=== PATIENT | female | born 1970 | race Hispanic/Latino ===

== ENCOUNTER 2023-05-15 13:12 | Day surgery (SDC) | payer BC | END 2023-05-15 17:48 | disposition home or self-care (01) | LOC: NM 13:12 | PROVIDERS: ATTEND Specialist | DX: C50.912 Malignant neoplasm of unspecified site of left female breast (principal) | CPT/HCPCS: 78195; A9541 ==

== ENCOUNTER 2023-06-30 12:36 | Outpatient (CLI) | payer BC ==
[2023-06-30 13:58] LABS: Anion Gap 16 mmol/L (10-20); BUN (Urea Nitrogen) 20 mg/dL (9.8-20.1); Calc. Creatinine Clearance 0 mL/min (70-130); Calcium 9.6 mg/dL (7.8-10.44); Carbon Dioxide 24 mmol/L (22-29); Chloride 102 mmol/L (98-107); Estimated GFR 105; Glucose 127 mg/dL (70-105); Potassium 4.3 mmol/L (3.5-5.1); Sodium 138 mmol/L (136-145)
[2023-06-30 14:00] LABS: #Basophils 0.1 10x3/uL (0.0-0.2); #Eosinphils 0.1 10x3/uL (0.0-0.5); #Monocytes 0.6 10x3/uL (0.0-1.1); #Neutrophils 10.2 10x3/uL (1.5-8.4); %Basophils 0.4 % (0.0-2.0); %Eosinophils 0.4 % (0.0-6.0); %Lymphocytes 20.7 % (18.0-47.0); %Monocytes 4.3 % (0.0-10.0); %Neutrophils 73.4 % (40.0-75.0); Hematocrit 37.9 % (34.9-44.5); Mean Corpuscular HGB CONC 34.3 g/dL (32.0-36.0); Mean Corpuscular Hemoglobin 32.1 pg (27.0-33.0); Mean Corpuscular Volume 93.6 fl (81.6-98.3); Mean Platelet Volume 11.7 fl (7.4-10.4); Platelet Count 278 10x3/uL (150-450); RBC Distribution Width 12.6 % (11.5-14.5); Red Blood Cell (RBC) Count 4.05 10x6/uL (3.90-5.03); White Blood Cell (WBC) Count 13.9 10x3/uL (3.5-10.5)
== END 2023-06-30 12:37 | disposition home or self-care (01) ==
LOC: LABBT 12:36
PROVIDERS: ATTEND Specialist
DX: Z01.812 Encounter for preprocedural laboratory examination (principal); C50.912 Malignant neoplasm of unspecified site of left female breast
CPT/HCPCS: 80048; 85025

== ENCOUNTER 2023-07-01 07:15 | Day surgery (SDC) | payer BC ==
[2023-06-30 11:47] VITALS: BMI 46.0
[2023-07-01] MEDS ORDERED: Lidocaine 1% MPF 2 ML VIAL ONE (08:25)
[2023-07-01] MEDS ORDERED: PROPOFOL 60 ML ONE (09:26)
[2023-07-01] MEDS ORDERED: fentaNYL 50 mcg/mL 1 mL Vial ONE (09:52)
[2023-07-01] MEDS ORDERED: Lidocaine 1% PF 5 ML VIAL ONE (09:56)
[2023-07-01] MEDS ORDERED: PROPOFOL 20 ML ONE (10:24)
== END 2023-07-01 11:32 | disposition home or self-care (01) ==
LOC: SDC 07:15 → UNDOADMIN 07:30 → SURG A 07:30 → SDC 11:32 → UNDODISIN 11:32
PROVIDERS: ATTEND Internal Medicine Gastroenterology
PROC: 0DB68ZX Excision of Stomach, Via Natural or Artificial Opening Endoscopic, Diagnostic (ICD-10-PCS; principal; 2023-07-01)
PROC: 0DBL8ZZ Excision of Transverse Colon, Via Natural or Artificial Opening Endoscopic (ICD-10-PCS; principal; 2023-07-01)
DX: D12.3 Benign neoplasm of transverse colon (principal); K31.7 Polyp of stomach and duodenum; K21.00 Gastro-esophageal reflux disease with esophagitis, without bleeding; K57.30 Diverticulosis of large intestine without perforation or abscess without bleeding; E11.9 Type 2 diabetes mellitus without complications; I10 Essential (primary) hypertension; C50.919 Malignant neoplasm of unspecified site of unspecified female breast; Z15.89 Genetic susceptibility to other disease; Z79.899 Other long term (current) drug therapy
CPT/HCPCS: J2704; J3010

== ENCOUNTER 2023-07-03 06:54 | Day surgery (SDC) | payer BC ==
[2023-06-30 13:30] VITALS: BMI 47.8
[2023-07-03] MEDS ORDERED: Ketorolac Tromethamine 30 MG (1 mL) VIAL ONE (08:18)
[2023-07-03] MEDS ORDERED: Acetaminophen 500 MG TAB ONE (08:19)
[2023-07-03] MEDS ORDERED: EPINEPHrine 1 MG/ML VIAL ONE (09:00)
[2023-07-03] MEDS ORDERED: Bupivacaine 0.25% HCL 30 ML VIAL ONE (09:00)
[2023-07-03] MEDS ORDERED: CEFAZOLIN 2 GM VIAL ONE (09:08)
[2023-07-03] MEDS ORDERED: Sodium Chloride 0.9% 100 ML ONE (09:08)
[2023-07-03] MEDS ORDERED: fentaNYL PF 100 MCG/2 ML SYRINGE ONE (09:09)
[2023-07-03] MEDS ORDERED: PROPOFOL 20 ML ONE (09:09)
[2023-07-03] MEDS ORDERED: Dexamethasone 4 mg/ml Vial ONE (09:10)
[2023-07-03] MEDS ORDERED: Lidocaine 1% PF 5 ML VIAL ONE (09:10)
[2023-07-03] MEDS ORDERED: Ondansetron PF 4 MG/2 ML Vial ONE (09:10)
[2023-07-03] MEDS ORDERED: Ondansetron HCl/PF 4 MG/2 ML Vial IVP PRN (10:55)
[2023-07-03] MEDS ORDERED: Promethazine HCl 25 MG/ML VIAL IM PRN (10:55)
[2023-07-03] MEDS ORDERED: fentaNYL 50 mcg/mL 1 mL Vial ONE ×2 (11:14→11:28)
== END 2023-07-03 13:35 | disposition home or self-care (01) ==
LOC: SDC 06:54
PROVIDERS: ATTEND Specialist
PROC: 07B60ZZ Excision of Left Axillary Lymphatic, Open Approach (ICD-10-PCS; principal; 2023-07-03)
DX: C50.912 Malignant neoplasm of unspecified site of left female breast (principal); C77.3 Secondary and unspecified malignant neoplasm of axilla and upper limb lymph nodes; E03.9 Hypothyroidism, unspecified; Z79.899 Other long term (current) drug therapy
CPT/HCPCS: 88305; 88341; 88342; C1713; J0171; J0665; J1100; J1885; J2405; J2704; J3010; J3490